=== PATIENT | male | born 2000 | race Caucasian/White ===

== ENCOUNTER 2019-12-02 15:30 | Emergency (ER) | payer MEDICAID ==
[~2019-12-02] VITALS: Ht 180.3 cm; Wt 113.6 kg
[2019-12-02] MEDS ORDERED: PERTUSS(ACELL),DIPH,TET VAC/PF 0.5 ML VIAL IM ONE (16:30)
[2019-12-02 17:14] VITALS: BP 149/74
== END 2019-12-02 17:37 | disposition home or self-care (01) ==
LOC: EMS 15:30
DX: S61.215A Laceration without foreign body of left ring finger without damage to nail, initial encounter (principal); F17.210 Nicotine dependence, cigarettes, uncomplicated; F12.90 Cannabis use, unspecified, uncomplicated; Z90.49 Acquired absence of other specified parts of digestive tract; Y04.0XXA Assault by unarmed brawl or fight, initial encounter; Y93.89 Activity, other specified; Y92.89 Other specified places as the place of occurrence of the external cause; Y99.8 Other external cause status
CPT/HCPCS: 12001; 90471; 90715